=== PATIENT | female | born 1935 | race Caucasian/White ===

== ENCOUNTER 2017-04-11 06:06 | Day surgery (SDC) | payer OTHER ==
[~2017-04-11] VITALS: Ht 165.1 cm; Wt 73.1 kg
[~2017-04-11 06:06] MED LIST: SODIUM CHLORIDE 0.9% 1,000 ML IV ONE
[2017-04-11] MEDS ORDERED: SODIUM CHLORIDE 0.9% 1,000 ML IV ONE (06:09)
[2017-04-11] MEDS ORDERED: CeFAZolin 1 GM/DEXTROSE 50 ML IV ONE ×2 (06:10→07:00)
[2017-04-11 06:41] LABS: BASOPHILS % (AUTO) 0.4 % (0.0-2.0); HEMATOCRIT 42.6 % (36-46); HEMOGLOBIN 14.4 g/dL (12.0-16.0); LYMPHOCYTES # (AUTO) 2.7 K/uL (1.0-4.8); LYMPHOCYTES % (AUTO) 42.3 % (22.0-44.0); MEAN CORPUSCULAR HEMOGLOBIN 30.7 pg (26.0-34.0); MEAN CORPUSCULAR HGB CONC 33.8 G/dL (31.0-37.0); MEAN CORPUSCULAR VOLUME 91 fL (80-100); MONOCYTES # (AUTO) 0.6 K/uL (0.1-1.0); MONOCYTES % (AUTO) 10.1 % (2.0-9.0); NEUTROPHILS # (AUTO) 2.6 K/uL (1.8-7.7); NEUTROPHILS % (AUTO) 40.2 % (40.0-70.0); PLATELET COUNT (AUTO) 269 K/uL (150-450); RED BLOOD CELL COUNT(AUTO) 4.69 MIL/uL (4.00-5.20); RED CELL DISTRIBUTION WIDTH 16.3 % (11.5-14.5); WHITE BLOOD COUNT (AUTO) 6.4 K/uL (4.5-11.0)
[2017-04-11] MEDS ORDERED: ACET-784 PO (06:47)
[2017-04-11] MEDS ORDERED: [UNRECOGNIZED DRUG - OTHER] PO (06:47)
[2017-04-11] MEDS ORDERED: PREG75 PO (06:47)
[2017-04-11] MEDS ORDERED: FentaNYL CITRATE-PF 100 MCG/2 ML VIAL ONE (07:28)
[2017-04-11] MEDS ORDERED: MIDAZOLAM HCL 2 MG/2 ML VIAL ONE (07:28)
[2017-04-11] MEDS ORDERED: LIDOCAINE HCL/PF 1% 30 ML VIAL ONE (07:46)
[2017-04-11] MEDS ORDERED: FentaNYL CITRATE-PF 100 MCG/2 ML VIAL IVP ONE (08:49)
[2017-04-11] MEDS ORDERED: MIDAZOLAM HCL 2 MG/2 ML VIAL IVP ONE (08:49)
[2017-04-11] MEDS ORDERED: SODIUM CHLORIDE 0.9% 1,000 ML IV SCH (10:06)
[2017-04-11] MEDS ORDERED: HYDROmorphone 2 MG/ML SYRINGE IVP PRN (10:15)
[2017-04-11] MEDS ORDERED: OxyCODONE HCL/ACETAMINOPHEN 5-325 MG TABLET PO PRN ×2 (10:15)
[2017-04-11] MEDS ORDERED: HYDROmorphone HCL 2 MG TABLET PO ONE (10:15)
[2017-04-11] MEDS ORDERED: HYDROmorphone HCL 2 MG TABLET ONE (10:31)
[2017-04-12] MEDS ORDERED: LORazepam 2 MG/ML VIAL IVP PRN (07:00)
== END 2017-04-11 11:30 | disposition home or self-care (01) ==
LOC: SURGERY 06:06 → EDSTATUS 08:00 → SURGERY 11:30
PROVIDERS: ATTEND Radiology Diagnostic Radiology
DX: C50.911 Malignant neoplasm of unspecified site of right female breast (principal); E03.9 Hypothyroidism, unspecified; K21.9 Gastro-esophageal reflux disease without esophagitis; Z90.710 Acquired absence of both cervix and uterus; Z98.890 Other specified postprocedural states; Z85.038 Personal history of other malignant neoplasm of large intestine; Z96.89 Presence of other specified functional implants
CPT/HCPCS: 19105; 36415; 85025; 99152; 99153; C2618; J0690; J2250; J3010; J3490; J7030